=== PATIENT | female | born 1960 | race Asian ===

== ENCOUNTER 2016-12-09 21:39 | Emergency (ER) | payer BC ==
[~2016-12-09] VITALS: Ht 162.6 cm; Wt 83.9 kg
[2016-12-09] MEDS ORDERED: METF500T PO (21:47)
[2016-12-09] MEDS ORDERED: AMLO2.5T PO (21:49)
[2016-12-09] MEDS ORDERED: METOPROLOL25 M1 PO (21:50)
[2016-12-09] MEDS ORDERED: CLONIDINE0.1 MG PO (21:51)
[2016-12-09 21:52] VITALS: TEMP 97.5
[2016-12-09] MEDS ORDERED: BENICAR HCT1 TA2 PO (21:53)
[2016-12-09] MEDS ORDERED: CARV12.5 PO (21:54)
[2016-12-09 23:59] LABS: PLATELET COUNT 192 K/uL (152-353)
[2016-12-10 00:02] LABS: POTASSIUM 3.9 mmol/L (3.6-5.2); SODIUM 131 mmol/L (136-145)
[2016-12-10 00:14] VITALS: BP 162/92
== END 2016-12-10 00:36 | disposition home or self-care (01) ==
LOC: ED 21:39
DX: I10 Essential (primary) hypertension (principal); R51 Headache
CPT/HCPCS: 36415; 80053; 81000; 85027; 96372; 99283; J1100; J1200; J1885; J2405

== ENCOUNTER 2016-12-14 13:47 | Outpatient (CLI) | payer BC ==
[~2016-12-14 13:47] MED LIST: AMLO2.5T PO; BENICAR HCT1 TA2 PO; CARV12.5 PO; CLONIDINE0.1 MG PO; METF500T PO; METOPROLOL25 M1 PO
[2016-12-14 14:17] LABS: PLATELET COUNT 219 K/uL (152-353)
== END 2016-12-14 23:47 | disposition home or self-care (01) ==
LOC: LABW 13:47
DX: G43.809 Other migraine, not intractable, without status migrainosus (principal); R74.8 Abnormal levels of other serum enzymes; K21.9 Gastro-esophageal reflux disease without esophagitis; R53.83 Other fatigue; E78.00 Pure hypercholesterolemia, unspecified; R73.09 Other abnormal glucose
CPT/HCPCS: 36415; 83036; 83735; 85027

== ENCOUNTER 2017-01-05 15:20 | Outpatient (CLI) | payer BC | END 2017-01-05 19:18 | disposition home or self-care (01) | LOC: LABW 15:20 | DX: G43.109 Migraine with aura, not intractable, without status migrainosus (principal); E11.9 Type 2 diabetes mellitus without complications; R74.8 Abnormal levels of other serum enzymes; I10 Essential (primary) hypertension; R53.83 Other fatigue; K21.9 Gastro-esophageal reflux disease without esophagitis; E34.8 Other specified endocrine disorders | CPT/HCPCS: 36415; 82670; 84144; 84402; 84403 ==

== ENCOUNTER 2017-05-06 15:22 | Emergency (ER) | payer BC ==
[~2017-05-06] VITALS: Ht 162.6 cm; Wt 78.0 kg
[2017-05-06 16:55] LABS: PLATELET COUNT 215 K/uL (152-353)
[2017-05-06 17:04] LABS: SODIUM 138 mmol/L (136-145)
[2017-05-06 17:24] VITALS: BP 142/93; TEMP 97.2
== END 2017-05-06 17:29 | disposition home or self-care (01) ==
LOC: ED 15:22
PROVIDERS: Emergency Medicine
DX: I10 Essential (primary) hypertension (principal); F41.1 Generalized anxiety disorder
CPT/HCPCS: 36415; 80053; 85027; 99282

== ENCOUNTER 2017-05-18 07:55 | Outpatient (CLI) | payer BC | END 2017-05-18 09:30 | disposition home or self-care (01) | LOC: RESP 07:55 | DX: I10 Essential (primary) hypertension (principal); E11.9 Type 2 diabetes mellitus without complications | CPT/HCPCS: 93306 ==

== ENCOUNTER 2018-04-24 09:12 | Outpatient (CLI) | payer BC | END 2018-04-24 22:20 | disposition home or self-care (01) | LOC: MAMMO 09:12 | DX: Z12.31 Encounter for screening mammogram for malignant neoplasm of breast (principal) ==

== ENCOUNTER 2019-01-16 16:49 | Emergency (ER) | payer BC, OTHER ==
[~2019-01-16] VITALS: Ht 162.6 cm; Wt 80.3 kg
[2019-01-16 17:52] LABS: PLATELET COUNT 224 K/uL (152-353)
[2019-01-16 17:57] LABS: POTASSIUM 3.5 mmol/L (3.6-5.2)
[2019-01-16 21:01] VITALS: BP 140/75; TEMP 98
== END 2019-01-16 20:35 | disposition home or self-care (01) ==
LOC: ED 16:49
PROVIDERS: Emergency Medicine
DX: I10 Essential (primary) hypertension (principal); R51 Headache
CPT/HCPCS: 36415; 80053; 85027; 93005; 96374; 96375; 99284; J2175; J2405; J3490

== ENCOUNTER 2019-01-16 18:21 | Outpatient (CLI) | payer BC, OTHER | END 2019-01-16 18:38 | disposition short-term general hospital (02) | LOC: AMB 18:21 | DX: R51 Headache (principal) | CPT/HCPCS: A0425; A0426 ==

== ENCOUNTER 2019-03-13 09:21 | Outpatient (CLI) | payer BC, OTHER | END 2019-03-13 20:10 | disposition home or self-care (01) | LOC: CT 09:21 | DX: I10 Essential (primary) hypertension (principal) | CPT/HCPCS: 36415; 82565; 84520; Q9963 ==

== ENCOUNTER 2019-06-19 13:16 | Outpatient (CLI) | payer BC, OTHER | END 2019-06-19 22:18 | disposition home or self-care (01) | LOC: LABW 13:16 | DX: K64.0 First degree hemorrhoids (principal) | CPT/HCPCS: 82272 ==

== ENCOUNTER 2019-07-02 09:07 | Outpatient (CLI) | payer BC, OTHER | END 2019-07-02 20:57 | disposition home or self-care (01) | LOC: RESP 09:07 | DX: I10 Essential (primary) hypertension (principal); E11.9 Type 2 diabetes mellitus without complications; E78.5 Hyperlipidemia, unspecified ==

== ENCOUNTER 2019-07-23 16:39 | Outpatient (CLI) | payer BC, OTHER | END 2019-07-23 23:22 | disposition home or self-care (01) | LOC: RAD 16:39 | DX: M54.5 Low back pain (principal); M25.552 Pain in left hip ==

== ENCOUNTER 2020-05-28 06:11 | Emergency (ER) | payer BC, OTHER ==
[~2020-05-28] VITALS: Ht 162.6 cm; Wt 80.3 kg
[2020-05-28 06:49] VITALS: TEMP 98.4
[2020-05-28 07:13] LABS: PLATELET COUNT 212 K/uL (152-353)
[2020-05-28 07:41] LABS: POTASSIUM 4.1 mmol/L (3.6-5.2); SODIUM 131 mmol/L (136-145)
[2020-05-28 13:03] VITALS: BP 143/84
== END 2020-05-28 15:55 | disposition still patient (30) ==
LOC: ED 06:11
PROVIDERS: Emergency Medicine
DX: U07.1 COVID-19 (principal); J18.8 Other pneumonia, unspecified organism; Z03.818 Encounter for observation for suspected exposure to other biological agents ruled out
CPT/HCPCS: 80053; 82550; 82553; 83605; 84484; 85027; 85379; 87040; 87635; 93005; 96365; 96366; 96368; 96375; 99285; G2023; J0456; J0696; J1100; J2405; U00003